=== PATIENT | female | born 1965 | race Caucasian/White ===

== ENCOUNTER 2017-02-27 08:26 | Emergency (ER) | payer MEDICAID ==
[2017-02-27] MEDS ORDERED: Ciprofloxacin 0.3% Ophth Soln 2.5 ML Bottle ONE (08:50)
[2017-02-27] MEDS ORDERED: FLU Vacc QS 2017-18 (36mos UP)/PF 60 MCG/0.5 ML Syringe IM ONE (08:51)
--- NOTE | 2017-02-27 08:54 | EDM.PDOC ---
ED HPI GENERAL MEDICAL PROBLEM - General Time Seen by Provider: 02/27/17 08:45 Source of Information: Reports: Patient History Limitations: Reports: No Limitations - History of Present Illness INITIAL COMMENTS - FREE TEXT/NARRATIVE: According to patient she has been having some itching and drainage from the left lower eyelid for pat 3 days. no blurry vision, no redness in the eye. no nasal congestion or cold symptoms. No fever or chills. Pt does have a young 9 month old at home, who has hadeye surgery and hence concerned. Duration: Day(s): (3) Improves with: Reports: None Worsens with: Reports: None Associated Symptoms: Denies: Confusion, Chest Pain, Cough, Diaphoresis, Fever/ Chills, Nausea/Vomiting, Rash, Shortness of Breath, Syncope - Related Data Allergies Allergy/AdvReac Type Severity Reaction Status Date / Time No Known Allergies Allergy Verified 02/27/17 09:15 Home Meds: Home Meds DULoxetine HCl [Cymbalta] 30 mg PO DAILY 05/17/15 [History] Lisinopril [Lisinopril] 10 mg PO DAILY 05/17/15 [History] Methocarbamol [Methocarbamol] 500 tab PO DAILY 05/17/15 [History] cloNIDine HCl [Clonidine HCl] 0.1 mg PO DAILY PRN 05/17/15 [History] Albuterol [Proair HFA] 2 puff INH ASDIRECTED PRN 08/05/15 [History] Cholecalciferol (Vitamin D3) [Vitamin D] 2,000 unit PO DAILY 08/05/15 [History] Colesevelam [Welchol] 625 mg PO DAILY 08/05/15 [History] Esomeprazole Magnesium [Nexium] 40 mg PO DAILY 08/05/15 [History] Fluticasone Propionate [Flonase] 2 applic INH DAILY 08/05/15 [History] Imipramine HCl 10 mg PO BEDTIME 08/05/15 [History] Metoclopramide HCl 10 mg PO DAILY 08/05/15 [History] Past Medical History HEENT History: Reports: None Other HEENT History: reading glasses, migraines Cardiovascular History: Reports: None Other Cardiovascular History: Takes lisinopril Respiratory History: Reports: None Gastrointestinal History: Reports: Other (See Below) Other Gastrointestinal History: Cholitis History, Current Abd. Pain, N/V/D. Genitourinary History: Reports: None Musculoskeletal History: Reports: Neck Pain, Chronic, Osteoarthritis Neurological History: Reports: Migraines Psychiatric History: Reports: Depression Hematologic History: Reports: Anemia, Blood Transfusion(s), Iron Deficiency - Past Surgical History Neurological Surgical History: Reports: Discectomy, Spinal Fusion Musculoskeletal Surgical History: Reports: Other (See Below) Social & Family History - Family History Family Medical History: Noncontributory - Tobacco Use Smoking Status *Q: Never Smoker Years of Tobacco use: 30 - Alcohol Use Days Per Week of Alcohol Use: 0 - Recreational Drug Use Recreational Drug Use: No ED ROS GENERAL - Review of Systems Review Of Systems: See Below Constitutional: Denies: Fever, Chills HEENT: Reports: Eye Discharge. Denies: Dental Pain, Ear Discharge, Ear Pain, Eye Pain, Rhinitis, Sinus Problem, Throat Pain Respiratory: Denies: Cough, Sputum Cardiovascular: Denies: Chest Pain, Lightheadedness GI/Abdominal: Denies: Nausea, Vomiting Musculoskeletal: Denies: Joint Pain, Joint Swelling Skin: Denies: Bruising, Pruritis, Rash ED EXAM, GENERAL - Physical Exam Exam: See Below Exam Limited By: No Limitations General Appearance: Alert, WD/WN, No Apparent Distress Eye Exam: Bilateral Eye: EOMI, Proptosis, Other (there is swelling of the left lower eyelid and there is mild erythema of the eye lid plate with miknimla stringy discharge.) Course - Vital Signs Text/Narrative:: Pt reassured that she has developed inflammation of the left lower eyelid margin. As she does have an young infant with eye surgery, I have empirically covered her with cipro eye drops 2 drops to left eye 4 times daily. Discussed eye hygiene. avoid rubbing the eye. Hand washing. Followup in the clinic if symptoms worsen. Last Recorded V/S: Last Vital Signs Temp 97 F 02/27/17 09:18 Pulse 94 02/27/17 09:18 Resp 16 02/27/17 09:18 BP 146/74 H 02/27/17 09:18 Pulse Ox 100 02/27/17 09:18 - Orders/Labs/Meds Meds: Medications Discontinued Medications Generic Name Dose Route Start Last Admin Trade Name Freq PRN Reason Stop Dose Admin Influenza Virus Vaccine 60 mcg 02/27/17 08:51 02/27/17 09:00 Fluzone Quad [id number] IM 02/27/17 08:52 60 mcg .ONCE ONE Administration Departure - Departure Time of Disposition: 08:55 Disposition: Home, Self-Care 01 Condition: Good Clinical Impression: Blepharitis of eyelid of left eye - Discharge Information Instructions: Blepharitis, Ciprofloxacin eye solution, Influenza Vaccine Referrals: Sameer Hoang MD [Primary Care Provider] - Forms: ED Department Discharge Care Plan Goals: Take 2 dropps day 4 x day x 3 days as directed by physician - Problem List & Annotations (1) Blepharitis of eyelid of left eye SNOMED Code(s): 245881319395513 Code(s): H01.006 - UNSPECIFIED BLEPHARITIS LEFT EYE, UNSPECIFIED EYELID Status: Acute - Problem List Review Problem List Initiated/Reviewed/Updated: Yes - Assessment/Plan Assessment:: Left eye Blepharitis Plan: Pt reassured that she has developed inflammation of the left lower eyelid margin. As she does have an young infant with eye surgery, I have empirically covered her with cipro eye drops 2 drops to left eye 4 times daily. Discussed eye hygiene. avoid rubbing the eye. Hand washing. Followup in the clinic if symptoms worsen.
[2017-02-27 09:22] VITALS: BP 146/74
== END 2017-02-27 09:00 | disposition home or self-care (01) ==
LOC: LB.ED 08:26
DX: H01.005 Unspecified blepharitis left lower eyelid (principal); F32.9 Major depressive disorder, single episode, unspecified; Z23 Encounter for immunization; Z79.899 Other long term (current) drug therapy
CPT/HCPCS: 99283; A9270; G0008; 90686

== ENCOUNTER 2019-01-04 16:49 | Emergency (ER) | payer MEDICAID ==
[2019-01-04] MEDS ORDERED: Acetaminophen/HYDROcodone 325-5 MG Tab ONE (17:20)
[2019-01-04] MEDS ORDERED: Ketorolac 10 MG Tab ONE (17:20)
[2019-01-04] MEDS ORDERED: Ketorolac 60 MG/2 ML SDV IM ONE (17:35)
[2019-01-04] MEDS ORDERED: Ketorolac 60 MG/2 ML SDV ONE (17:46)
[2019-01-04 18:29] VITALS: BP 137/67; PULSE 68
--- NOTE | 2019-01-05 11:51 | EDM.PDOC ---
ED HPI GENERAL MEDICAL PROBLEM - General Chief Complaint: General Stated Complaint: Lower Abdominal pain Time Seen by Provider: 01/04/19 17:05 Source of Information: Reports: Patient History Limitations: Reports: No Limitations - History of Present Illness INITIAL COMMENTS - FREE TEXT/NARRATIVE: Pt claims that she has been having pain in her right midback and the pain radiates into her right lower abdomen. The pain started about 1 hour ago and it was intermittent, and now it has got constant. Rates her pain at 6/10 now but when it gets severe is at 9/10.No fever or chills.Patient claims she felt nauseous when the pain started, but presently not nauseous. No abdominal bloating.There is no urinary frequency, but she claims in the past 1 hr she has used toilet and noted pinkish urine. Pt claims she has history of passing kidney stones and feels like one.Last stone she passed was about 10 years ago. Recently patient claims she has been drinking home brewed tea all day. 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 - Related Data Allergies Allergy/AdvReac Type Severity Reaction Status Date / Time No Known Allergies Allergy Verified 01/04/19 17:24 Home Meds: Home Meds DULoxetine HCl [Cymbalta] 30 mg PO DAILY 05/17/15 [History] Lisinopril 10 mg PO DAILY 05/17/15 [History] Methocarbamol 500 tab PO DAILY 05/17/15 [History] cloNIDine HCl [Clonidine HCl] 0.1 mg PO DAILY PRN 05/17/15 [History] Albuterol [Proair HFA] 2 puff INH ASDIRECTED PRN 08/05/15 [History] Cholecalciferol (Vitamin D3) [Vitamin D] 2,000 unit PO DAILY 08/05/15 [History] Colesevelam [Welchol] 625 mg PO DAILY 08/05/15 [History] Esomeprazole Magnesium [Nexium] 40 mg PO DAILY 08/05/15 [History] Fluticasone Propionate [Flonase] 2 applic INH DAILY 08/05/15 [History] Imipramine HCl 10 mg PO BEDTIME 08/05/15 [History] Metoclopramide HCl 10 mg PO DAILY 08/05/15 [History] Diazepam [Valium] 5 mg PO BID PRN 01/04/19 [History] Past Medical History HEENT History: Reports: None Other HEENT History: reading glasses, migraines Cardiovascular History: Reports: High Cholesterol, Hypertension Other Cardiovascular History: Takes lisinopril, Takes Metoprolol for rapid heart beat Respiratory History: Reports: None Gastrointestinal History: Reports: GERD, Other (See Below) Other Gastrointestinal History: Cholitis History, Current Abd. Pain, N/V/D. Genitourinary History: Reports: None Musculoskeletal History: Reports: Neck Pain, Chronic, Osteoarthritis Neurological History: Reports: Migraines Psychiatric History: Reports: Depression Hematologic History: Reports: Anemia, Blood Transfusion(s), Iron Deficiency - Past Surgical History Neurological Surgical History: Reports: Discectomy, Spinal Fusion Musculoskeletal Surgical History: Reports: Other (See Below) Social & Family History - Family History Family Medical History: Noncontributory - Caffeine Use Caffeine Use: Reports: Coffee ED ROS GENERAL - Review of Systems Review Of Systems: See Below Constitutional: Denies: Fever, Chills, Weakness HEENT: Denies: Rhinitis, Throat Pain Respiratory: Denies: Shortness of Breath, Cough, Sputum Cardiovascular: Denies: Chest Pain, Lightheadedness Endocrine: Denies: Fatigue GI/Abdominal: Reports: Abdominal Pain, Nausea. Denies: Constipation, Diarrhea, Vomiting : Reports: Hematuria. Denies: Dysuria, Frequency Musculoskeletal: Denies: Joint Pain, Joint Swelling Skin: Denies: Bruising, Pruritis, Rash, Wound ED EXAM, GENERAL - Physical Exam Exam: See Below Exam Limited By: No Limitations General Appearance: Alert, WD/WN, Mild Distress Eye Exam: Bilateral Eye: EOMI, PERRL Ears: Normal External Exam, Normal Canal, Hearing Grossly Normal, Normal TMs Ear Exam: Bilateral Ear: Auricle Normal, Canal Normal, TM normal Nose: Normal Inspection, Normal Mucosa, No Blood Throat/Mouth: Normal Inspection, Normal Lips, Normal Teeth, Normal Gums, Normal Oropharynx, Normal Voice, No Airway Compromise Head: Atraumatic, Normocephalic Neck: Normal Inspection, Supple, Non-Tender, Full Range of Motion Respiratory/Chest: No Respiratory Distress, Lungs Clear, Normal Breath Sounds, No Accessory Muscle Use, Chest Non-Tender Cardiovascular: Normal Peripheral Pulses, Regular Rate, Rhythm, No Edema, No Gallop, No JVD, No Murmur, No Rub GI/Abdominal: Normal Bowel Sounds, Soft, Non-Tender, No Organomegaly, No Distention, No Abnormal Bruit, No Mass Extremities: Normal Inspection, Normal Range of Motion, Non-Tender, Normal Capillary Refill, No Pedal Edema Neurological: Alert, Oriented, CN II-XII Intact, Normal Cognition, Normal Gait, Normal Reflexes, No Motor/Sensory Deficits Skin Exam: Warm, Intact Course - Vital Signs Text/Narrative:: Pt presents with sudden onset of right side midback pain with radiation to right abdomen. Clinical exam is normal. She does appear in distress. She does have hematuria. Her CBC is normal, BMP is normal, Her UA shows large blood. IT does appear like she is passing a renal stone on the right side. She did receive toradol 60mg Im , she had good relief in her pain with in 30 minutes of the injection. This does appear like a small stone that she is passing. I have not done CT scan as she has history of renal stones. I have advised patient to alternate toradol 10,g with vicodin 5/325mg every 4 hrs for good pain control. Advised plenty of fluids or next 24 hrs. Also advised to strain the urine. IF her pain and discomfort has not resolved in 24 hrs, she should come into emergency room for further workup. Pt understands and agrees with the plan. Last Recorded V/S: Last Vital Signs Temp 97.2 F 01/04/19 17:04 Pulse 68 01/04/19 17:04 Resp 18 01/04/19 17:04 BP 137/67 01/04/19 17:04 Pulse Ox 100 01/04/19 17:04 - Orders/Labs/Meds Labs: Laboratory Tests 01/04/19 01/04/19 01/04/19 Range/Units 17:13 17:14 17:14 WBC 11.5 H D (4.0-11.0) K/uL RBC 3.44 L (3.80-5.80) M/uL Hgb 11.2 L (11.5-16.5) g/dL Hct 33.0 L (37.0-47.0) % MCV 96 (76-96) fL MCH 32.6 H (27.0-32.0) pg MCHC 33.9 (31.0-35.0) g/dL RDW 11.5 (11.0-16.0) % Plt Count 251 (150-500) K/uL MPV 9.1 (6.0-10.0) fL Neut % (Auto) 57.3 (45.0-70.0) % Lymph % (Auto) 30.7 (20.0-40.0) % [place] % (Auto) 8.8 (3.0-10.0) % Eos % (Auto) 3.0 (1.0-5.0) % Baso % (Auto) 0.2 (0.0-0.5) % Neut # (Auto) 6.58 (2.00-7.50) K/uL Lymph # (Auto) 3.52 (1.50-4.00) K/uL [place] # (Auto) 1.01 H (0.20-0.80) K/uL Eos # (Auto) 0.34 (0.04-0.40) K/uL Baso # (Auto) 0.02 (0.02-0.10) K/uL Sodium 143 (136-145) mmol/L Potassium 4.3 (3.5-5.1) mmol/L Chloride 106 (98-107) mmol/L Carbon Dioxide 25.8 (21.0-32.0) mmol/L Anion Gap 15.5 H (5.0-15.0) mmol/L BUN 13 (8-26) mg/dL Creatinine 0.72 (0.55-1.02) mg/dL Est Cr Clr Drug Dosing TNP Estimated GFR (MDRD) > 60 (>60) MLS/MIN BUN/Creatinine Ratio 18.1 (6-25) Glucose 81 D (74-100) mg/dL Calcium 8.7 (8.5-10.1) mg/dL Urine Color Red Urine Appearance Slightly cloudy (CLEAR) Urine pH 6.0 (5.0-8.0) Ur Specific [place] 1.010 (1.003-1.030) Urine Protein 30 H (NEGATIVE) mg/dL Urine Glucose (UA) Negative (NEGATIVE) mg/dL Urine Ketones Negative (NEGATIVE) mg/dL Urine Occult Blood Large H (NEGATIVE) Urine Nitrite Negative (NEGATIVE) Urine Bilirubin Negative (NEGATIVE) Urine Urobilinogen 0.2 (0.2-1.0) E.U./dL Ur Leukocyte Esterase Small H (NEGATIVE) Urine RBC >100 H /HPF Urine WBC 0-5 H /HPF Ur Squamous Epith Cells Few /HPF Urine Bacteria Few /HPF Meds: Medications Discontinued Medications Generic Name Dose Route Start Last Admin Trade Name Freq PRN Reason Stop Dose Admin Ketorolac Tromethamine 60 mg 01/04/19 17:35 01/04/19 17:42 Toradol IM 01/04/19 17:36 60 mg ONETIME ONE Administration Ketorolac Tromethamine Confirm 01/04/19 17:46 01/04/19 17:45 Toradol Administered 01/04/19 17:47 Not Given Dose 60 mg .ROUTE .STK-MED ONE Departure - Departure Time of Disposition: 18:00 Disposition: Home, Self-Care 01 Condition: Fair Clinical Impression: Ureteric colic - Discharge Information *PRESCRIPTION DRUG MONITORING PROGRAM REVIEWED*: Not Applicable *COPY OF PRESCRIPTION DRUG MONITORING REPORT IN PATIENT AZALIA: Not Applicable Instructions: Kidney Stones, Flank Pain, Adult, [id number] Referrals: PCP,None [Primary Care Provider] - Forms: ED Department Discharge Additional Instructions: - Drink lots of water. Minimize tea. - Take Ketorolac 10 mg every 8 hours alternately with Vicodin 5/325 mg orally with foods for pain. - Come back to ER if pain worsen. - Call the clinic tomorrow to see Dr Guajardo if needing to consult him. - Will wait to do CT scan of the pelvis when needed. - Strain urine to check passing out of stones. - Problem List & Annotations (1) Diarrhea SNOMED Code(s): 61148787 Code(s): R19.7 - DIARRHEA, UNSPECIFIED Status: Acute Priority: High Onset Date: ~04/12/16 Qualifiers: Diarrhea type: unspecified type Qualified Code(s): R19.7 - Diarrhea, unspecified (2) Ureteric colic SNOMED Code(s): 83038047 Code(s): N23 - UNSPECIFIED RENAL COLIC Status: Acute - Problem List Review Problem List Initiated/Reviewed/Updated: Yes - Assessment/Plan Assessment:: ureteric colic right sided Plan: Pt presents with sudden onset of right side midback pain with radiation to right abdomen. Clinical exam is normal. She does appear in distress. She does have hematuria. Her CBC is normal, BMP is normal, Her UA shows large blood. IT does appear like she is passing a renal stone on the right side. She did receive toradol 60mg Im , she had good relief in her pain with in 30 minutes of the injection. This does appear like a small stone that she is passing. I have not done CT scan as she has history of renal stones. I have advised patient to alternate toradol 10,g with vicodin 5/325mg every 4 hrs for good pain control. Advised plenty of fluids or next 24 hrs. Also advised to strain the urine. IF her pain and discomfort has not resolved in 24 hrs, she should come into emergency room for further workup. Pt understands and agrees with the plan.
== END 2019-01-04 18:08 | disposition home or self-care (01) ==
LOC: LB.ED 16:49
DX: N23 Unspecified renal colic (principal); I10 Essential (primary) hypertension; K21.9 Gastro-esophageal reflux disease without esophagitis; M19.90 Unspecified osteoarthritis, unspecified site; F32.9 Major depressive disorder, single episode, unspecified; Z86.2 Personal history of diseases of the blood and blood-forming organs and certain disorders involving the immune mechanism; Z79.899 Other long term (current) drug therapy
CPT/HCPCS: 36415; 80048; 81001; 85025; 96372; 99283-25; A9270-GY; J1885

== ENCOUNTER 2019-11-01 11:18 | Emergency (ER) | payer MEDICAID ==
[2019-11-01 11:46] VITALS: BP 133/85; PULSE 83
--- NOTE | 2019-11-01 12:29 | EDM.PDOC ---
ED HPI GENERAL MEDICAL PROBLEM - General Chief Complaint: Lower Extremity Injury/Pain Stated Complaint: FOOT INJURY Time Seen by Provider: 11/01/19 11:40 Source of Information: Reports: Patient History Limitations: Reports: No Limitations - History of Present Illness INITIAL COMMENTS - FREE TEXT/NARRATIVE: Patient stepped in a rut while walking across her lawn and twisted her right ankle . NOw with pain and swelling of the ankle. Pain with ambulation. No bleeding present. History of foot fracture on left several months agol. Patient concerned about possible fracture. 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 Right Ankle Pain Score (Numeric/FACES): 7 - Related Data Allergies Allergy/AdvReac Type Severity Reaction Status Date / Time No Known Allergies Allergy Verified 08/29/19 09:24 Home Meds: Home Meds DULoxetine HCl [Cymbalta] 30 mg PO DAILY 05/17/15 [History] Lisinopril 10 mg PO DAILY 05/17/15 [History] cloNIDine HCL [Clonidine HCl] 0.1 mg PO DAILY PRN 05/17/15 [History] methocarbamoL [Methocarbamol] 500 tab PO DAILY 05/17/15 [History] Albuterol [Proair HFA] 2 puff INH ASDIRECTED PRN 08/05/15 [History] Cholecalciferol (Vitamin D3) [Vitamin D] 2,000 unit PO DAILY 08/05/15 [History] Colesevelam [Welchol] 625 mg PO DAILY 08/05/15 [History] Esomeprazole Magnesium [Nexium] 40 mg PO DAILY 08/05/15 [History] Fluticasone Propionate [Flonase] 2 applic INH DAILY 08/05/15 [History] Imipramine HCl 10 mg PO BEDTIME 08/05/15 [History] Metoclopramide HCl 10 mg PO DAILY 08/05/15 [History] diazePAM [Valium] 5 mg PO BID PRN 01/04/19 [History] Past Medical History HEENT History: Reports: None Other HEENT History: reading glasses, migraines Cardiovascular History: Reports: Hypertension Other Cardiovascular History: Takes lisinopril, Takes Metoprolol for rapid heart beat Respiratory History: Reports: None Gastrointestinal History: Reports: GERD, Other (See Below) Other Gastrointestinal History: Cholitis History, Current Abd. Pain, N/V/D. Genitourinary History: Reports: None Musculoskeletal History: Reports: Neck Pain, Chronic, Osteoarthritis Neurological History: Reports: Migraines Psychiatric History: Reports: Depression Hematologic History: Reports: Anemia, Blood Transfusion(s), Iron Deficiency - Past Surgical History Neurological Surgical History: Reports: Discectomy, Spinal Fusion Musculoskeletal Surgical History: Reports: Other (See Below) Social & Family History - Family History Family Medical History: Noncontributory - Tobacco Use Smoking Status *Q: Former Smoker Used Tobacco, but Quit: Yes Month/Year Tobacco Last Used: 10 years ago - Caffeine Use Caffeine Use: Reports: Coffee - Recreational Drug Use Recreational Drug Use: No Review of Systems - Review of Systems Review Of Systems: See Below Constitutional: Denies: Chills, Fever, Weakness Respiratory: Denies: Shortness of Breath, Cough Cardiovascular: Denies: Chest Pain GI/Abdominal: Denies: Abdominal Pain, Nausea, Vomiting Genitourinary: Reports: No Symptoms Musculoskeletal: Reports: Other (Pain, tenderness , swelling of ) ED EXAM, GENERAL - Physical Exam Exam: See Below Head: Atraumatic, Normocephalic Neck: Supple, Non-Tender, Full Range of Motion Respiratory/Chest: No Respiratory Distress Extremities: Other (Tenderness/swelling of distal right fibula over lateral malleolus with pain with motion. Patietn walked in with boot cast in place) Neurological: Alert, Oriented ED TRAUMA EXTREMITY PROCEDURES - Splinting Right Lower Extremity Pre-Procedure NV Status: Normal Post-Procedure NV Status: Normal Splint Material: Fiberglass Splint Design: Other (U splint) Applied & Form Fitted By: Provider Provider Post-Splint Application NV Check: NV Status Normal, Good Position Complications: No Course - Vital Signs Text/Narrative:: Splint applied after X ray positive X ray of right ankle . Minimally displaced distal fibular fx involving lateral ankle mortice CAst teaching by ANIYAH Tyljerrell or Advil as needed Last Recorded V/S: Last Vital Signs Temp 97.3 F 11/01/19 11:44 Pulse 83 11/01/19 11:44 Resp 18 11/01/19 11:44 BP 133/85 11/01/19 11:44 Pulse Ox 100 11/01/19 11:44 Departure - Departure Time of Disposition: 12:35 Disposition: Home, Self-Care 01 Clinical Impression: Fracture of fibula, closed Qualifiers: Encounter type: initial encounter Fibula location: distal physis (incl. Salter- Hensley) Laterality: right Qualified Code(s): S89.301A - Unspecified physeal fracture of lower end of right fibula, initial encounter for closed fracture - Discharge Information *PRESCRIPTION DRUG MONITORING PROGRAM REVIEWED*: No *COPY OF PRESCRIPTION DRUG MONITORING REPORT IN PATIENT AZALIA: Not Applicable Instructions: Crutch Use, Adult, [id number], Cast or Splint Care, Adult, [id number], Tibial and Fibular Fractures Referrals: Meliton Taylor MD [Primary Care Provider] - Additional Instructions: Follow up with [facility]/They will call by 12 noon tomorrow if not call their office NO weight bearing , crutches Splint and crutches RICE Rest Ice Elevation, Crutches Ice 10-15 minutes every 3-4 hours while awake for next 24 hours Sepsis Event Note (ED) - Evaluation Sepsis Screening Result: No Definite Risk
--- NOTE | 2019-11-01 16:05 | CR ---
CLINICAL DATA: Right ankle pain. RIGHT ANKLE, 01 NOVEMBER 2019: No priors. There is soft tissue swelling over the lateral malleolus. There is a minimally displaced transverse fracture through the distal fibula. No other acute abnormalities. IMPRESSION: Fracture distal fibula. Job: [id number] MTDD
== END 2019-11-01 12:51 | disposition home or self-care (01) ==
LOC: LB.ED 11:18
DX: S82.831A Other fracture of upper and lower end of right fibula, initial encounter for closed fracture (principal); I10 Essential (primary) hypertension; F32.9 Major depressive disorder, single episode, unspecified; K21.9 Gastro-esophageal reflux disease without esophagitis; Z79.899 Other long term (current) drug therapy; Z87.891 Personal history of nicotine dependence; X50.1XXA Overexertion from prolonged static or awkward postures, initial encounter
CPT/HCPCS: 29515; 73610-RT; 99283-25

== ENCOUNTER 2021-10-23 11:56 | Day surgery (SDC) | payer MEDICAID ==
[~2021-10-23 11:56] MED LIST: Metoclopramide 10 MG/2 ML SDV IV PRN
[2021-10-23] MEDS: Sodium Chloride 0.9% 1,000 ML IV SCH (13:10)
[2021-10-23] MEDS ORDERED: Propofol 1,000 MG/100 ML SDV ONE (14:30)
[2021-10-23 14:48] VITALS: BP 120/75; PULSE 71
== END 2021-10-23 15:15 | disposition home or self-care (01) ==
LOC: LB.SDS 11:56
PROVIDERS: ATTEND Surgery
DX: R19.5 Other fecal abnormalities (principal); K63.89 Other specified diseases of intestine; K59.00 Constipation, unspecified; I10 Essential (primary) hypertension; E78.5 Hyperlipidemia, unspecified; G89.29 Other chronic pain; K21.9 Gastro-esophageal reflux disease without esophagitis; M54.2 Cervicalgia; Z98.890 Other specified postprocedural states; Z79.899 Other long term (current) drug therapy
CPT/HCPCS: 45330; J2704; J7030

== ENCOUNTER 2021-12-18 10:14 | Day surgery (SDC) | payer MEDICAID ==
[~2021-12-18 10:14] MED LIST changes: -Metoclopramide 10 MG/2 ML SDV IV PRN; +Sodium Chloride 0.9% 1,000 ML IV SCH
[2021-12-18] MEDS ORDERED: Propofol 200 MG/20 ML SDV ONE (13:30)
[2021-12-18 13:51] VITALS: BP 126/88; PULSE 74
== END 2021-12-18 14:20 | disposition home or self-care (01) ==
LOC: LB.SDS 10:14
PROVIDERS: ATTEND Surgery
DX: R10.13 Epigastric pain (principal); I10 Essential (primary) hypertension; Z87.19 Personal history of other diseases of the digestive system
CPT/HCPCS: J2704; J7030

== ENCOUNTER 2023-04-30 13:17 | Emergency (ER) | payer MEDICAID ==
[2023-04-30] MEDS ORDERED: Orphenadrine 60 MG/2 ML Inj ONE (13:45)
[2023-04-30] MEDS ORDERED: Orphenadrine 60 MG/2 ML Inj IM ONE (13:46)
[2023-04-30] MEDS: Ketorolac 60 MG/2 ML SDV ONE ×2 (13:52→13:53)
[2023-04-30] MEDS ORDERED: Ketorolac 60 MG/2 ML SDV IM ONE (13:53)
[2023-04-30 14:06] VITALS: PULSE 75
[2023-04-30 14:07] VITALS: BP 160/92
== END 2023-04-30 13:50 | disposition home or self-care (01) ==
LOC: LB.ED 13:17
DX: S39.012A Strain of muscle, fascia and tendon of lower back, initial encounter (principal); I10 Essential (primary) hypertension; K21.9 Gastro-esophageal reflux disease without esophagitis; Z79.899 Other long term (current) drug therapy; X50.0XXA Overexertion from strenuous movement or load, initial encounter
CPT/HCPCS: 96372; 99283; J1885; J2360

== ENCOUNTER 2023-07-05 08:31 | Emergency (ER) | payer MEDICAID ==
[2023-07-05] MEDS: Lidocaine 1% 5 ML VIAL INJECT ONE (09:21)
[2023-07-05] MEDS: Bupivacaine 0.5% 10 ML SDV INJECT ONE (09:21)
[2023-07-05] MEDS: Ketorolac 60 MG/2 ML SDV IM ONE (10:23)
[2023-07-05] MEDS: Ketorolac 60 MG/2 ML SDV ONE (10:28)
[2023-07-05 14:00] VITALS: BP 174/97; PULSE 63
== END 2023-07-05 10:48 | disposition home or self-care (01) ==
LOC: LB.ED 08:31
DX: G44.209 Tension-type headache, unspecified, not intractable (principal); E78.00 Pure hypercholesterolemia, unspecified; I10 Essential (primary) hypertension; K21.9 Gastro-esophageal reflux disease without esophagitis; Z91.018 Allergy to other foods; Z91.012 Allergy to eggs; Z91.014 Allergy to mammalian meats; Z86.19 Personal history of other infectious and parasitic diseases; Z79.899 Other long term (current) drug therapy
CPT/HCPCS: 20552; 96372; 99283; 99283-25; J0665; J1885

== ENCOUNTER 2023-11-14 14:08 | Observation (INO) | payer MEDICAID ==
[2023-11-14] MEDS: Orphenadrine 60 MG/2 ML Inj IV ONE (15:08)
[2023-11-14] MEDS: Ketorolac 30 MG/ML SDV ONE (15:08)
[2023-11-14] MEDS: Ketorolac 30 MG/ML SDV IVPUSH ONE (15:08)
[2023-11-14] MEDS: Magnesium Sulfate/Water 2 GM in Premix Bag 1 BAG IV ONE (15:08)
[2023-11-14] MEDS: Orphenadrine 60 MG/2 ML Inj ONE (15:09)
[2023-11-14] MEDS: Magnesium Sulfate/Water 50 ML ONE (15:42)
[2023-11-14] MEDS: Labetalol 100 MG/20 ML MDV IVPUSH PRN (15:48)
[2023-11-14] MEDS: hydrALAZINE 20 MG/ML SDV IVPUSH ONE (16:09)
[2023-11-14] MEDS: Labetalol 100 MG/20 ML MDV IVPUSH ONE (16:09)
[2023-11-14] MEDS: hydrALAZINE 20 MG/ML SDV ONE (17:03)
[2023-11-14] MEDS: LORazepam 2 MG/ML SDV IVPUSH ONE (17:04)
[2023-11-14 17:30] LABS: BASOPHILS ABSOLUTE AUTO 0.04 K/uL (0.02-0.10); BASOPHILS PERCENT AUTO 0.5 % (0.0-0.5); EOSINOPHILS ABSOLUTE AUTO 0.37 K/uL (0.04-0.40); EOSINOPHILS PERCENT AUTO 4.3 % (1.0-5.0); HEMATOCRIT 41.3 % (37.0-47.0); LYMPHOCYTES ABSOLUTE AUTO 2.24 K/uL (1.50-4.00); LYMPHOCYTES PERCENT AUTO 25.8 % (20.0-40.0); MEAN CORPUSCULAR HEMOGLOBIN 29.5 pg (27.0-32.0); MEAN CORPUSCULAR HGB CONC 33.9 g/dL (31.0-35.0); MEAN CORPUSCULAR VOLUME 87 fL (76-96); MONOCYTES ABSOLUTE AUTO 0.75 K/uL (0.20-0.80); MONOCYTES PERCENT AUTO 8.6 % (3.0-10.0); NEUTROPHILS ABSOLUTE AUTO 5.29 K/uL (2.00-7.50); NEUTROPHILS PERCENT AUTO 60.8 % (45.0-70.0); PLATELET COUNT,PLT 254 K/uL (150-500); RED BLOOD CELL COUNT 4.74 M/uL (3.80-5.80); RED CELL DISTRIBUTION WIDTH 16.1 % (11.0-16.0); WHITE BLOOD CELL COUNT,WBC 8.7 K/uL (4.0-11.0)
[2023-11-14] MEDS: LORazepam 2 MG/ML SDV ONE (17:31)
[2023-11-14 17:53] LABS: ANION GAP 15.7 mmol/L (5.0-15.0); BUN/CREATININE RATIO 15.7 (6-25); CALCIUM 9.2 mg/dL (8.5-10.1); CREATININE 1.02 mg/dL (0.55-1.02); EST CRCL DRUG DOSING (CG) 43.18 mL/min; MAGNESIUM 2.6 mg/dL (1.8-2.4); PHOSPHORUS 3.6 mg/dL (2.5-4.9); POTASSIUM,K 3.7 mmol/L (3.5-5.1); TROPONIN I HIGH SENSITIVITY 6.5 pg/ml (<=60.4)
[2023-11-14] MEDS: Labetalol 100 MG in Sodium Chloride 0.9% 80 ML IV SCH (19:14)
[2023-11-14] MEDS: Ondansetron 4 MG/2 ML SDV IVPUSH ONE (19:16)
[2023-11-14] MEDS: Hydrochlorothiazide 12.5 MG Cap PO SCH (19:23)
[2023-11-14] MEDS: Ondansetron 4 MG/2 ML SDV ONE (19:24)
[2023-11-14] MEDS ORDERED: Diazepam 5 MG Tab PO PRN (20:21)
[2023-11-14] MEDS: Metoprolol Succinate 25 MG Tab.ER PO SCH (22:33)
[2023-11-14] MEDS: Simvastatin 40 MG Tab PO SCH (22:34)
[2023-11-14] MEDS: Acetaminophen 325 MG Tab PO PRN (23:53)
[2023-11-14 23:58] LABS: APPEARANCE,URINE CLOUDY (CLEAR); BILIRUBIN,URINE NEGATIVE (NEGATIVE); COLOR,URINE YELLOW; GLUCOSE,URINE NEGATIVE (NEGATIVE); KETONES,URINE NEGATIVE (NEGATIVE); LEUKOCYTE ESTERASE,URINE MODERATE (NEGATIVE); NITRITE,URINE POSITIVE (NEGATIVE); OCCULT BLOOD,URINE NEGATIVE (NEGATIVE); PH,URINE 7.5 (5.0-8.0); PROTEIN,URINE 30 mg/dL (NEGATIVE); UROBILINOGEN,URINE 0.2 E.U./dL (0.2-1.0)
[2023-11-15 00:04] LABS: BACTERIA,URINE MANY /HPF; SQUAMOUS EPITHELIAL CELLS,UR MANY /HPF; WBC,URINE 75-100 /HPF
[2023-11-15] MEDS: Sulfamethoxazole/Trimethoprim 800-160 MG Tab PO SCH (00:49)
[2023-11-15] MEDS ORDERED: Methocarbamol 500 MG Tab PO SCH ×2 (08:00→08:07)
[2023-11-15] MEDS ORDERED: Methocarbamol 500 MG Tab PO PRN (08:08)
[2023-11-15] MEDS ORDERED: CHLORZOXAZONE 500 MG PO PRN (08:25)
[2023-11-15 08:43] LABS: HEMATOCRIT 38.2 % (37.0-47.0); HEMOGLOBIN 12.8 g/dL (11.5-16.5); MEAN CORPUSCULAR HEMOGLOBIN 29.2 pg (27.0-32.0); MEAN CORPUSCULAR HGB CONC 33.5 g/dL (31.0-35.0); MEAN PLATELET VOLUME 10.2 fL (6.0-10.0); RED BLOOD CELL COUNT 4.38 M/uL (3.80-5.80); WHITE BLOOD CELL COUNT,WBC 7.7 K/uL (4.0-11.0)
[2023-11-15 08:59] LABS: ANION GAP 14.5 mmol/L (5.0-15.0); BUN/CREATININE RATIO 13.4 (6-25); CALCIUM 8.8 mg/dL (8.5-10.1); CARBON DIOXIDE,CO2 24.7 mmol/L (21.0-32.0); CREATININE 0.97 mg/dL (0.55-1.02); EST CRCL DRUG DOSING (CG) 45.41 mL/min; POTASSIUM,K 4.2 mmol/L (3.5-5.1)
[2023-11-15] MEDS: DULoxetine 60 MG Cap PO SCH (09:19)
[2023-11-15] MEDS: Lisinopril 10 MG Tab PO SCH (09:19)
[2023-11-15] MEDS: Pantoprazole 40 MG Tab.CR PO SCH (09:19)
[2023-11-15] MEDS: DULoxetine 30 MG Cap PO SCH (09:19)
[2023-11-15] MEDS: buPROPion 150 MG Tab.SR PO SCH (09:20)
[2023-11-15] MEDS: Cholecalciferol (Vitamin D3) 2,000 Unit Cap PO SCH (09:20)
[2023-11-15] MEDS: CHLORZOXAZONE 500 MG PO SCH (09:27)
[2023-11-15] MEDS: Metoprolol Tartrate 25 MG Tab PO SCH (09:27)
[2023-11-15] MEDS: Lisinopril 10 MG Tab PO ONE (10:53)
[2023-11-15 14:25] VITALS: BP 140/67; PULSE 83
[2023-11-15] MEDS ORDERED: Metoprolol Tartrate 25 MG Tab PO SCH (20:00)
== END 2023-11-15 13:40 | disposition home or self-care (01) ==
LOC: SUPCPDRO 14:08 → LB.ED 14:08 → LB.MS 19:52
PROVIDERS: ADMIT Nurse Practitioner Family; ATTEND Nurse Practitioner Family
DX: I16.9 Hypertensive crisis, unspecified (principal); I10 Essential (primary) hypertension; F32.A Depression, unspecified; E78.00 Pure hypercholesterolemia, unspecified; K21.9 Gastro-esophageal reflux disease without esophagitis; Z79.899 Other long term (current) drug therapy; Z91.018 Allergy to other foods; Z91.012 Allergy to eggs; Z91.014 Allergy to mammalian meats
CPT/HCPCS: 36415; 70450; 80048; 81001; 83735; 84100; 84484; 85025; 85027; 93005; 93010; 96365; 96375; 96376; 99222; 99238; 99285; A9270; J0360; J1885; J1921; J2060; J2360; J2405; J3475; J3490; 96366; G0378

== ENCOUNTER 2023-12-08 15:58 | Emergency (ER) | payer MEDICAID ==
[2023-12-08] MEDS: Orphenadrine 60 MG/2 ML Inj IM ONE (16:50)
[2023-12-08] MEDS: Ketorolac 30 MG/ML SDV IM ONE (16:50)
[2023-12-08 17:49] VITALS: BP 168/94; PULSE 87
[2023-12-08] MEDS: Ketorolac 30 MG/ML SDV ONE (17:49)
[2023-12-08] MEDS: Orphenadrine 60 MG/2 ML Inj ONE (17:49)
== END 2023-12-08 16:57 | disposition home or self-care (01) ==
LOC: LB.ED 15:58
DX: G43.909 Migraine, unspecified, not intractable, without status migrainosus (principal); I10 Essential (primary) hypertension; E78.00 Pure hypercholesterolemia, unspecified; K21.9 Gastro-esophageal reflux disease without esophagitis; Z91.012 Allergy to eggs; Z91.014 Allergy to mammalian meats; Z91.018 Allergy to other foods; Z79.899 Other long term (current) drug therapy
CPT/HCPCS: 96372; 99283; J1885; J2360

== ENCOUNTER 2024-01-02 10:01 | Emergency (ER) | payer MEDICAID ==
[2024-01-02 10:21] VITALS: BP 149/95; PULSE 70
[2024-01-02] MEDS: Orphenadrine 60 MG/2 ML Inj IM ONE (11:14)
[2024-01-02] MEDS: Ketorolac 30 MG/ML SDV IM ONE (11:14)
== END 2024-01-02 11:17 | disposition home or self-care (01) ==
LOC: LB.ED 10:01
DX: M54.2 Cervicalgia (principal); G89.29 Other chronic pain; I10 Essential (primary) hypertension; E78.00 Pure hypercholesterolemia, unspecified; K21.9 Gastro-esophageal reflux disease without esophagitis; Z90.49 Acquired absence of other specified parts of digestive tract; Z79.899 Other long term (current) drug therapy
CPT/HCPCS: 96372; 99283; J1885; J2360